=== PATIENT | male | born 1985 | race Caucasian/White ===

== ENCOUNTER → 2020-05-24 | Outpatient (CLI) | payer OTHER ==
--- NOTE | 2020-05-24 13:52 | KCIC ---
EXAM: Lumbar spine, 5 views. HISTORY: Pain. COMPARISON: None. FINDINGS: 5 views of the lumbar spine are obtained. The left L5 transverse process is sacralized and articulates with the underlying sacrum, a normal variant. There is no significant listhesis. There is no fracture. The disc spaces are preserved. IMPRESSION: No acute osseous finding. Electronically signed by: Estrella Knutson MD (05/24/2020 1:49 PM) [id number]
--- NOTE | 2020-05-24 19:21 | KCIC ---
PROCEDURE: KNEE RIGHT 3V STUDY DATE: 05/24/2020 CLINICAL INDICATION / HISTORY: Reason: CHRONIC RT KNEE PAIN, WORSENING PAIN / Spl. Instructions: / History: . TECHNIQUE: AP, lateral, and oblique standing views of the right knee. COMPARISON: None FINDINGS: There is fragmentation at the tibial tuberosity, compatible with Breda-Schlatter's disease. Osseous structures are intact. The articular surfaces are smooth. The joint space is maintained. No intra-articular loose bodies. The alignment is within normal limits. The soft tissues are unremarkable. Trace right knee joint effusion.. No radio-opaque foreign bodies are identified. IMPRESSION: Radiographic findings compatible with Joselin-Schlatter's disease and trace right knee joint effusion. Otherwise negative x-rays. Electronically signed by: Marlee Rodriguez MD (05/24/2020 7:18 PM) [facility] [place]
== END | disposition home or self-care (01) ==
LOC: KCIC 11:47
PROVIDERS: ATTEND Family Medicine
DX: M92.51 Juvenile osteochondrosis of proximal tibia (principal); G89.29 Other chronic pain; M54.5 Low back pain
CPT/HCPCS: 72110; 73562